=== PATIENT | female | born 1995 | race Caucasian/White ===

== ENCOUNTER 2017-07-21 16:57 | Emergency (ER) | payer SELFPAY ==
[~2017-07-21] VITALS: Ht 175.3 cm; Wt 109.6 kg
[2017-07-21 16:59] VITALS: BP 158/85; PULSE 86; RESP 16; TEMP 98.5; O2SAT 98
[2017-07-21 18:01] LABS: BILIRUBIN, URINE NEG (NEG); BLOOD, URINE TRACE (NEG); GLUCOSE,URINE NEG (NEG); KETONE, URINE NEG (NEG); NITRITE,URINE NEG (NEG); URINE COLOR YELLOW (YELLW/STRAW); URINE LEUKOCYTE ESTERASE SMALL (NEG)
[2017-07-21 18:11] LABS: BACTERIA, URINE FEW /hpf; RBC, URINE 0-3 /hpf (0-3); SQUAMOUS EPITHELIAL CELL URINE 0-5 /hpf (0-5)
[2017-07-21 18:12] LABS: AMORPHOUS SEDIMENT, URINE FEW
--- NOTE | 2017-07-21 18:42 | PD ---
HPI Chief Complaint: Abdominal Pain Time Seen by Provider: 17:18 Travel History International Travel<30 days: No Contact w/Intl Traveler<30days: No Traveled to known affect area: No History of Present Illness HPI Patient is a 22-year-old female who presents emergency department with 2 months worth of intermittent abdominal cramping and now developing vaginal discharge. She states she is sexually active with only 1 partner and has been for several years, she states that there is no chance that she could have sexually transmitted disease. She states that she is also very certain that she is not despite not using protection. Denies any fevers nausea vomiting constipation but does endorse brownish diarrhea that is nonbloody and non- melanous. She has not seen an [facility] in nearly a decade. Does not have a primary care physician to see either. No fevers. States the pain is intermittent, mild, duration and associated signs and symptoms as above PFSH Past Medical History Medical History: Denies Significant Hx Hx Anticoagulant Therapy: No Diabetes: No Tetanus Vaccination: > 5 Years Influenza Vaccination: No ?: Not LMP: 3 weeks ago Past Surgical History Surgical History: No Previous Surgery Social History Alcohol Use: No Tobacco Use: Yes (/ PPD) Substance Use: No Allergies-Medications (Allergen,Severity, Reaction): Coded Allergies: clarithromycin (Verified Allergy, Intermediate, Hives, 07/21/17) Reported Meds & Prescriptions Reported Meds & Active Scripts Active Flagyl (Metronidazole) 500 Mg Tab 500 Mg PO BID 7 Days Review of Systems Except as stated in HPI: all other systems reviewed are Neg Physical Exam Narrative GENERAL: Well-developed well-nourished no obvious distress, quite comfortable. SKIN: Focused skin assessment warm/dry. HEAD: Atraumatic. Normocephalic. EYES: Pupils equal and round. No scleral icterus. No injection or drainage. ENT: No nasal bleeding or discharge. Mucous membranes pink and moist. NECK: Trachea midline. No JVD. CARDIOVASCULAR: Regular rate and rhythm. No murmur appreciated. RESPIRATORY: No accessory muscle use. Clear to auscultation. Breath sounds equal bilaterally. GASTROINTESTINAL: Abdomen soft, non-tender, nondistended. Hepatic and splenic margins not palpable. No rebound no percussive tenderness, no CVA tenderness. Abdomen completely benign peer GENITOURINARY: Exam performed with female nurse pick pulling machine operator present all times, there is small amount of vaginal discharge light green in color, likely BV. No cervical motion tenderness no bimanual tenderness. MUSCULOSKELETAL: No obvious deformities. No clubbing. No cyanosis. No edema. NEUROLOGICAL: Awake and alert. No obvious cranial nerve deficits. Motor grossly within normal limits. Normal speech. PSYCHIATRIC: Appropriate mood and affect; insight and judgment normal. Data Data Last Documented VS Vital Signs Date Time Temp Pulse Resp B/P (MAP) Pulse Ox O2 Delivery O2 Flow Rate FiO2 07/21/17 19:07 77 16 168/62 (97) 100 07/21/17 16:59 98.5 Orders Orders Urinalysis - C+S If Indicated (07/21/17 17:10) Ed Urine Pregnancytest Poc (07/21/17 17:10) Wet Prep Profile (07/21/17 17:31) Gc And Chlamydia Pcr (07/21/17 17:31) Ed Discharge Order (07/21/17 18:52) Labs Laboratory Tests Test 07/21/17 17:45 07/21/17 18:30 Urine Color YELLOW Urine Turbidity CLEAR Urine pH 7.0 Urine Specific [place] 1.010 Urine Protein NEG mg/dL Urine Glucose (UA) NEG mg/dL Urine Ketones NEG mg/dL Urine Occult Blood TRACE Urine Nitrite NEG Urine Bilirubin NEG Urine Urobilinogen 0.2 MG/DL Urine Leukocyte Esterase SMALL Urine RBC 0-3 /hpf Urine WBC 6-8 /hpf Urine Squamous Epithelial Cells 0-5 /hpf Urine Amorphous Sediment FEW Urine Bacteria FEW /hpf Microscopic Urinalysis Comment CULT NOT INDICATED Clue Cells (Wet Prep) NONE SEEN Vaginal Trichomonas (Wet Prep) NONE SEEN Vaginal Yeast (Wet Prep) NONE SEEN MDM Medical Decision Making Medical Screen Exam Complete: Yes Emergency Medical Condition: Yes Differential Diagnosis Irritable bowel disease, Crohn's disease, endometriosis, acute abdomen unlikely , ovarian torsion highly unlikely, UTI, BV, STD peer Narrative Course Patient room to the emergency department, has a very benign abdomen, pelvic exam consistent with BV, STD probe sent and discussed with the patient will call if positive. Discussed empiric therapy for BV and prevention techniques. Discussed follow-up with primary care physician or return to ED criteria. She is stable for discharge per Diagnosis Primary Impression: Bacterial vaginosis Additional Impression: Pelvic pain Referrals: Salvador Farias MD Med/Other Pt SpecificInfo: Prescription(s) given Scripts Metronidazole (Flagyl) 500 Mg Tab 500 MG PO BID for Infection for 7 Days, #14 TAB 0 Refills Prov: Jordin Adkins MD 07/21/17 Disposition: 01 DISCHARGE HOME Condition: Stable Jordin Adkins MD Jul 21, 2017 18:42
[2017-07-21] MEDS ORDERED: METR-1 PO (18:52)
[2017-07-21 19:07] VITALS: BP 168/62
== END 2017-07-21 19:08 | disposition home or self-care (01) ==
LOC: PHED 16:57
DX: N76.0 Acute vaginitis (principal); R19.7 Diarrhea, unspecified; F17.200 Nicotine dependence, unspecified, uncomplicated
CPT/HCPCS: 81001; 84703; 87210; 87491; 87591; 99284

== ENCOUNTER 2017-07-25 12:15 | Emergency (ER) | payer SELFPAY ==
[~2017-07-25] VITALS: Ht 175.3 cm; Wt 107.0 kg
[~2017-07-25 12:15] MED LIST: METR-1 PO
[2017-07-25 12:21] VITALS: BP 133/74; PULSE 98; RESP 16; TEMP 98.7; O2SAT 97
[2017-07-25] MEDS ORDERED: DOXY100C PO (12:50)
--- NOTE | 2017-07-25 12:50 | PD ---
HPI Chief Complaint: Abdominal Pain Time Seen by Provider: 12:37 Travel History International Travel<30 days: No Contact w/Intl Traveler<30days: No Traveled to known affect area: No History of Present Illness HPI This 22-year-old female is complaining of lower abdominal pain. She has been having the pain for several days. She was a patient here on the fourth. At that time she had a pelvic exam done. The wet prep was negative but the exam was thought to be consistent with bacterial vaginosis and she has been on Flagyl. A gonorrhea chlamydia swab was done at that time and the result was positive for chlamydia. She has not yet been treatment treated for chlamydia. She is having some lower abdominal pain. She does say the discharge has improved. [facility] Past Medical History Medical History: Denies Significant Hx Hx Anticoagulant Therapy: No Diabetes: No Influenza Vaccination: No ?: Not LMP: 3 WEEKS Past Surgical History Surgical History: No Previous Surgery Social History Alcohol Use: No Tobacco Use: Yes (/ PPD) Substance Use: No Allergies-Medications (Allergen,Severity, Reaction): Coded Allergies: clarithromycin (Verified Allergy, Intermediate, Hives, 07/25/17) Reported Meds & Prescriptions Reported Meds & Active Scripts Active Flagyl (Metronidazole) 500 Mg Tab 500 Mg PO BID 7 Days Review of Systems General / Constitutional: No: Fever, Chills Gastrointestinal: Positive: Abdominal Pain Genitourinary: Positive: Pelvic Pain Neurologic: No: Weakness Hematologic/Lymphatic: No: Easy Bruising Physical Exam Narrative GENERAL: Well-developed female SKIN: Focused skin assessment warm/dry. HEAD: Atraumatic. Normocephalic. EYES: Pupils equal and round. No scleral icterus. No injection or drainage. ENT: No nasal bleeding or discharge. Mucous membranes pink and moist. NECK: Trachea midline. No JVD. CARDIOVASCULAR: Regular rate and rhythm. No murmur appreciated. RESPIRATORY: No accessory muscle use. Clear to auscultation. Breath sounds equal bilaterally. GASTROINTESTINAL: Abdomen soft, non-tender, nondistended. Hepatic and splenic margins not palpable. Mild suprapubic tenderness MUSCULOSKELETAL: No obvious deformities. No clubbing. No cyanosis. No edema. NEUROLOGICAL: Awake and alert. No obvious cranial nerve deficits. Motor grossly within normal limits. Normal speech. PSYCHIATRIC: Appropriate mood and affect; insight and judgment normal. Data Data Last Documented VS Vital Signs Date Time Temp Pulse Resp B/P (MAP) Pulse Ox O2 Delivery O2 Flow Rate FiO2 07/25/17 12:21 98.7 98 16 133/74 (93) 97 Orders Orders Complete Blood Count With Diff (07/25/17 12:41) Comprehensive Metabolic Panel (07/25/17 12:41) MDM Medical Decision Making Medical Screen Exam Complete: Yes Emergency Medical Condition: Yes Medical Record Reviewed: Yes Differential Diagnosis Differential includes cervicitis, nonspecific abdominal pain, Narrative Course Patient did have a swab positive for chlamydia and has not been treated. I will give her Rocephin followed by doxycycline Diagnosis Primary Impression: Chlamydia infection Scripts Doxycycline Hyclate (Doxycycline Hyclate) 100 Mg Cap 100 MG PO BID for Infection for 10 Days, #20 CAP 0 Refills Prov: Robert Lopez MD 07/25/17 Disposition: 01 DISCHARGE HOME Condition: Stable Robert Lopez MD Jul 25, 2017 12:50
[2017-07-25] MEDS ORDERED: LIDOCAINE HCL 1% PF 30 ML VIAL ONE (12:57)
[2017-07-25] MEDS ORDERED: cefTRIAXone 250 MG VIAL IM ONE (13:00)
[2017-07-25] MEDS ORDERED: LIDOCAINE HCL 1% 50 ML VIAL XX ONE (13:00)
== END 2017-07-25 13:28 | disposition home or self-care (01) ==
LOC: PHED 12:15
DX: A74.9 Chlamydial infection, unspecified (principal); R10.30 Lower abdominal pain, unspecified; F17.200 Nicotine dependence, unspecified, uncomplicated
CPT/HCPCS: 96372; 99283; J0696